=== PATIENT | female | born 1955 | race African-American/Black ===

== ENCOUNTER 2016-08-06 18:36 | Inpatient (IN) | payer OTHER ==
[~2016-08-06] VITALS: Ht 162.6 cm; Wt 92.0 kg
[2016-08-06] MEDS ORDERED: SOD CHLORIDE 0.9% 1,000 ML IV STA (18:37)
[2016-08-06 19:12] VITALS: TEMP 97.6
[2016-08-06 19:14] LABS: ADD SCAN DIFF NO
[2016-08-06 19:17] LABS: BASOPHILS % 0.7 % (0.0-2.0); EOSINOPHILS % 0.4 % (0.0-7.0); HEMATOCRIT 49.1 % (37.0-47.0); HEMOGLOBIN 16.4 g/dl (12.0-16.0); LYMPHOCYTES # 1.6 10^3/ul (0.8-2.9); LYMPHOCYTES % 29.8 % (15.0-51.0); MEAN CORPUSCULAR HEMOGLOBIN 31.1 pg (29.0-33.0); MEAN CORPUSCULAR HGB CONC 33.4 g/dl (32.0-37.0); MEAN PLATELET VOLUME 9.1 fl (7.4-10.4); MONOCYTE # 0.3 10^3/ul (0.3-0.9); MONOCYTES % 5.5 % (0.0-11.0); NEUTROPHIL # 3.4 10^3/ul (1.6-7.5); NEUTROPHILS % 63.4 % (39.0-77.0); PLATELET COUNT 283 10^3/UL (140-415); RED BLOOD COUNT 5.28 10^6/ul (4.20-5.40); RED CELL DISTRIBUTION WIDTH 13.2 % (11.5-14.5); WHITE BLOOD COUNT 5.4 10^3/ul (4.8-10.8)
--- NOTE | 2016-08-06 19:25 | RADRPT ---
PROCEDURE: XR Chest. CLINICAL INDICATION: Chest pain. TECHNIQUE: Portable AP semi erect view of the chest was obtained. COMPARISON: None. FINDINGS: The cardiomediastinal silhouette is within normal limits. The lungs are clear. There is no evidenc e for pleural effusion, pneumothorax or pulmonary vascular congestion. The osseous structures are i ntact with no evidence for acute abnormality. RPTAT:HJJR IMPRESSION: No evidence for acute intrathoracic pathology. Physician Cici Date Time Electronically viewed and signed by Efren Weldon Physician on 08/06/2016 19:25 JR/
[2016-08-06 19:27] LABS: CHLORIDE 103 mmol/L (97-110); POTASSIUM 3.3 mmol/L (3.5-5.1); SODIUM 142 mmol/L (135-144)
[2016-08-06 19:29] LABS: CREATININE 2.31 mg/dl (0.44-1.00)
[2016-08-06 19:30] LABS: ANION GAP 17 (8-16); BLOOD UREA NITROGEN 22 mg/dl (7-20); CARBON DIOXIDE 25 mmol/L (21-31); GLUCOSE 174 mg/dl (70-220)
[2016-08-06 19:35] LABS: INR 0.99; PROTIME 13.1 Sec (12.2-14.2)
[2016-08-06 19:41] LABS: TROPONIN-I < 0.012 ng/ml (0.00-0.12)
[2016-08-06] MEDS ORDERED: ASPIRIN 81 MG TAB PO ONE (21:30)
--- NOTE | 2016-08-06 21:38 | ERA ---
ER Documentation Chief Complaint Date/Time DATE: 08/06/16 TIME: 21:35 Chief Complaint weakness, chest pain, sob after giving plasma HPI 61-year-old female history of lupus who presents with weakness and chest pain and shortness of breath after giving plasma. Shortly after donating plasma 1 hour prior to arrival the patient started to feel lightheaded and dizzy. She started to have substernal chest pressure that was dull and achy. Nonradiating. Mild shortness of breath but no pleuritic pain. The patient was hypotensive upon arrival. ROS All systems reviewed and are negative except as per history of present illness. PMhx/Soc History of Surgery: Yes (boil excision and drainage) Anesthesia Reaction: No Hx Neurological Disorder: No Hx Respiratory Disorders: No Hx Cardiac Disorders: No Hx Psychiatric Problems: No Hx Miscellaneous Medical Probl: Yes (lupus) Hx Alcohol Use: Yes (2 drinks per month) Hx Substance Use: No Hx Tobacco Use: Yes Smoking Status: Light tobacco smoker FmHx Family History: No diabetes Physical Exam Vitals Vital Signs Date Time Temp Pulse Resp B/P Pulse Ox O2 Delivery O2 Flow Rate FiO2 08/06/16 19:59 81 14 116/72 90 08/06/16 19:17 84 102/70 08/06/16 19:14 90 81/63 08/06/16 19:12 97.6 94 18 70/50 98 Room Air 08/06/16 18:40 98.1 101 24 98 Physical Exam General: Anxious with hyperventilation Head: Normocephalic, atraumatic. Eyes: Pupils equally reactive, EOM intact ENT: Moist mucous membranes Neck: Supple, no lymphadenopathy Respiratory: Lungs clear bilaterally, no distress Cardiovascular: Slight tachycardia, no murmurs, rubs, or gallops Abdominal: Soft, non-tender, non-distended, no peritoneal signs : Deferred MSK: No edema, no unilateral swelling, 5/5 strength Neurologic: Alert and oriented, moving all extremities, normal speech, no focal weakness, no cerebellar signs Skin: No rash Psych: Normal mood Result Diagram: 08/06/16190908/06/161909 Results 24 hrs Laboratory Tests Test 08/06/16 19:10 Activated Partial Thromboplast Time 25.0Sec Anion Gap 17 Basophils # 0.010^3/ul Basophils % 0.7% Blood Urea Nitrogen 22mg/dl Calcium Level 9.0mg/dl Carbon Dioxide Level 25mmol/L Chloride Level 103mmol/L Creatinine 2.31mg/dl Eosinophils # 0.010^3/ul Eosinophils % 0.4% Glucose Level 174mg/dl Hematocrit 49.1% Hemoglobin 16.4g/dl INR International Normalized Ratio 0.99 Lymphocytes # 1.610^3/ul Lymphocytes % 29.8% Mean Corpuscular Hemoglobin 31.1pg Mean Corpuscular Hemoglobin Concent 33.4g/dl Mean Corpuscular Volume 93.0fl Mean Platelet Volume 9.1fl Monocytes # 0.310^3/ul Monocytes % 5.5% Neutrophils # 3.410^3/ul Neutrophils % 63.4% Nucleated Red Blood Cells # 0.010^3/ul Nucleated Red Blood Cells % 0.0/100WBC Platelet Count 51834^3/UL Potassium Level 3.3mmol/L Prothrombin Time 13.1Sec Prothrombin Time Ratio 1.0 Red Blood Count 5.2810^6/ul Red Cell Distribution Width 13.2% Sodium Level 142mmol/L Troponin I < 0.012ng/ml White Blood Count 5.410^3/ul Current Medications Medications (Trade) Dose Ordered Sig/Juanpablo Route PRN Reason Start Time Stop Time Status Last Admin Dose Admin Sodium Chloride (NS) 1,000 ml @ 1,000 mls/hr Q1H STAT IV 08/06/16 18:37 08/06/16 19:36 DC 08/06/16 19:08 Aspirin (Aspirin) 324 mg ONCE ONCE PO 08/06/16 21:30 08/06/16 21:31 DC 08/06/16 21:34 Procedures/MDM EKG, MONITORS, & DIAGNOSTIC IMAGING: EKG: I reviewed and interpreted a 12-lead EKG. Rhythm: Normal sinus rhythm Ectopy: None Intervals: No abnormalities ST segments: No elevations or depressions T waves: No contiguous inversions Chest x-ray: I reviewed and interpreted a 1 view of the chest Mediastinum: No enlargement Cardiac silhouette: No cardiomegaly Airspace: Clear lung [place] bilaterally without evidence of pneumothorax Bones: No evidence of fracture LAB INTERPRETATION: Negative troponin, elevated creatinine MEDICAL DECISION MAKING: The patient presents with chest pain and hypotension after donating plasma. This is likely secondary to relative hypovolemia and fluid shifts. However with the patient's chest pain, history of lupus I cannot rule out demand ischemia. Patient will benefit from EKG, troponin, fluid resuscitation. No signs of dissection or pulmonary embolism. ER COURSE: The patient's blood pressure rapidly responded to fluid resuscitation. Her symptoms improved. Aspirin provided. The patient's creatinine is elevated. She has not been told that she has elevated creatinine in the past. I do not have a baseline. I discussed inpatient versus outpatient management. Patient prefers inpatient hospitalization she has never had stress testing or provocative testing for her heart. I believe this to be reasonable given her age and risk factors and relative hypotension. Observation would be reasonable to rule out ACS. I kept the patient and/or family informed of laboratory and diagnostic imaging results throughout the emergency room course. DISPOSITION PLAN: Telemetry admission for chest pain CONSULTATION: Accepting care team and consultations: I discussed the current laboratory data, diagnostic imaging and emergency care provided. Admitting team: Dr. Majano Admitting team indication: Insurance directed Departure Diagnosis: Primary Impression: Chest pain Qualified Code: R07.9 - Chest pain, unspecified type Additional Impression: Acute renal insufficiency Condition: Stable YVETTE MESA MD Aug 06, 2016 21:38
[2016-08-06] MEDS ORDERED: ALBUTEROL/IPRATROPIUM (NEB) 3 ML AMP HHN PRN (22:00)
[2016-08-06] MEDS ORDERED: ONDANSETRON 4 MG INJ IV PRN ×2 (22:00)
[2016-08-06] MEDS ORDERED: LORAZEPAM 2 MG INJ IV PRN (22:00)
[2016-08-06] MEDS ORDERED: hydrALAzine 20 MG INJ IV PRN (22:00)
[2016-08-06] MEDS ORDERED: ACETAMINOPHEN 325 MG TAB PO PRN ×2 (22:00)
[2016-08-06] MEDS ORDERED: NACL 0.9% 3 ML SYG IV SCH (22:00)
[2016-08-06] MEDS ORDERED: NITROGLYCERIN (SL) 0.4 MG TAB SL PRN (22:00)
[2016-08-06] MEDS ORDERED: morphine 2 MG INJ IV PRN (22:00)
[2016-08-06] MEDS ORDERED: DOCUSATE SODIUM 100 MG CAP PO PRN (22:00)
[2016-08-06] MEDS ORDERED: NA PHOSPHATE/BIPHOS 133 ML ENEMA PR PRN (22:00)
[2016-08-06 22:32] LABS: CREATINE KINASE 35 IU/L (23-200)
[2016-08-06 22:47] LABS: CK-MB < 0.22 ng/ml (0.0-2.4)
[2016-08-06 22:51] LABS: TROPONIN-I < 0.012 ng/ml (0.00-0.12)
[2016-08-06 23:25] VITALS: Ht 162.6 cm; Wt 92.0 kg
[2016-08-06 23:31] VITALS: BP 99/65; PULSE 85; RESP 20
[2016-08-07] VITALS (10 sets, daily range): BP systolic 99–128; BP diastolic 63–72; PULSE 71–88; RESP 18–20
[2016-08-07 01:48] LABS: CREATINE KINASE 32 IU/L (23-200)
[2016-08-07 01:59] LABS: TROPONIN-I 0.014 ng/ml (0.00-0.12)
[2016-08-07 02:00] LABS: CK-MB < 0.22 ng/ml (0.0-2.4)
[2016-08-07 03:50] LABS: CREATINE KINASE 29 IU/L (23-200)
[2016-08-07 04:44] LABS: CK-MB < 0.22 ng/ml (0.0-2.4); TROPONIN-I < 0.012 ng/ml (0.00-0.12)
--- NOTE | 2016-08-07 04:53 | HP ---
DATE OF ADMISSION: 08/06/2016 The patient was seen and examined by me on 08/06/2016 at 10:00 p.m. This is a 61-year-old female. CHIEF COMPLAINT: Hypotension and chest pain. HISTORY OF PRESENT ILLNESS: A 61-year-old female with past medical history of lupus who presents wi th some weakness and chest pain symptoms and low blood pressure. The patient apparently gave plasma earlier today and started having the symptoms shortly afterwards. She has never had these symptoms before, although she has given plasma before. Again, the patient had these symptoms of chest pain and shortness of breath. She also had a little bit of lightheadedness and dizziness, but no loss of consciousness. She also had some substernal chest pressure as well that was dull and achy. She ne abena had a stroke or heart attack before. No upper or lower GI bleeding, no fevers or chills, no new rrhea, no constipation. When the patient arrived to the ER, she had low blood pressure systolic was in the low 70s as well. PAST MEDICAL HISTORY: As stated above. ALLERGIES: Unknown. MEDICATIONS AT HOME: None. FAMILY HISTORY: Mom had renal issues, diabetes. Mom also had stroke and she had "heart" problems. Father had renal disease and was on dialysis before he . One sister has diabetes. PAST SURGICAL HISTORY: She has had boil excision and drainage surgery in the past. SOCIAL HISTORY: She drinks about 2 drinks per month. She does smoke a few cigarettes per week, but no IV drug abuse today. PHYSICAL EXAMINATION: VITAL SIGNS: T-max 98.1, pulse 81 to 101, respirations 14 to 24, blood pressure 70 to 116 systolic over 50 to 72 diastolic, saturating at 98% on room air. GENERAL: The patient is sitting up in bed, answering questions, alert, pleasant, in no acute distre ss. HEENT: Pupils equal, round and reactive to light. Extraocular muscles intact. NECK: Supple, no thyromegaly. LUNGS: Clear to auscultation bilaterally. CARDIOVASCULAR: S1, S2 heard. No rubs or gallops. ABDOMEN: Soft, nontender, nondistended. Normal bowel sounds. No rebound or guarding. MUSCULOSKELETAL: No lower extremity edema bilaterally. NEUROLOGIC: No focal deficits. LABORATORIES: CBC is normal. The sodium is 142, potassium 3.3, chloride 103, CO2 of 25, BUN 22, cr eatinine 2.31, glucose 174. Troponin is negative x1. Coags are normal. Chest x-ray: No evidence of any acute cardiopulmonary disease. EKG done in the ER showed normal sinus rhythm, no ST changes or T-wave inversions were noted. ASSESSMENT AND PLAN: A 61-year-old female coming in with chest pressure symptoms, weakness, dizzine ss and hypotension after donating plasma earlier today. 1. Chest pain. Admit the patient to telemetry floor, rule out for acute coronary syndrome. We anais l trend her troponins check them q.6 hours x3. Put her on aspirin, morphine, oxygen, and nitrates, get an echocardiogram as well. Check TSH, A1c and lipid panel as well. 2. Dizziness and hypotension. Blood pressure has improved. Continue IV fluids and monitor for now . 3. History of lupus. The patient states that she was evaluated by a field mechanic/site lead in the last year , but it was determined not to take any medicines for now, so will just monitor for now. The patien t is not on any medicines presently for this, does not complain of any flare ups at this time. 4. Gastrointestinal prophylaxis, proton pump inhibitor. 5. Deep venous thrombosis prophylaxis, heparin subQ. Dictated By: OZ COLLINS Conf#: [id number] DID#: [id number]
[2016-08-07] MEDS: SOD CHLORIDE 0.45% 1,000 ML IV SCH ×2 (05:00→11:40)
[2016-08-07] MEDS: PANTOPRAZOLE (EC) 40 MG TAB PO SCH (05:47)
[2016-08-07 07:39] LABS: CREATINE KINASE 31 IU/L (23-200)
[2016-08-07 07:43] LABS: ADD SCAN DIFF NO
[2016-08-07 07:47] LABS: TROPONIN-I 0.016 ng/ml (0.00-0.12)
[2016-08-07 07:49] LABS: CK-MB < 0.22 ng/ml (0.0-2.4)
[2016-08-07 08:17] LABS: BASOPHIL # 0.1 10^3/ul (0.0-0.1); EOSINOPHILS # 0.1 10^3/ul (0.0-0.5); HEMATOCRIT 42.4 % (37.0-47.0); HEMOGLOBIN 14.1 g/dl (12.0-16.0); LYMPHOCYTES % 37.5 % (15.0-51.0); MEAN CORPUSCULAR HEMOGLOBIN 31.3 pg (29.0-33.0); MEAN CORPUSCULAR HGB CONC 33.3 g/dl (32.0-37.0); MEAN CORPUSCULAR VOLUME 94.2 fl (82.0-101.0); MEAN PLATELET VOLUME 9.6 fl (7.4-10.4); MONOCYTE # 0.7 10^3/ul (0.3-0.9); MONOCYTES % 12.4 % (0.0-11.0); NEUTROPHIL # 2.5 10^3/ul (1.6-7.5); NEUTROPHILS % 47.9 % (39.0-77.0); PLATELET COUNT 257 10^3/UL (140-415); RED CELL DISTRIBUTION WIDTH 13.4 % (11.5-14.5); WHITE BLOOD COUNT 5.3 10^3/ul (4.8-10.8)
[2016-08-07 08:27] LABS: CHOL/HDL RATIO 3.7 RATIO; POTASSIUM 3.8 mmol/L (3.5-5.1)
[2016-08-07 08:30] LABS: CREATININE 1.49 mg/dl (0.44-1.00)
[2016-08-07 08:31] LABS: CALCIUM 8.4 mg/dl (8.4-10.2); MAGNESIUM 2.1 mg/dl (1.7-2.5); PHOSPHORUS 4.4 mg/dl (2.5-4.9)
[2016-08-07] MEDS: ASPIRIN (EC) 325 MG TAB PO SCH (08:36)
[2016-08-07] MEDS: HEPARIN 5,000 UNIT/0.5 ML SYG SC SCH ×2 (08:46→20:30)
[2016-08-07 10:53] LABS: THYROID STIMULATING HORMONE 0.675 MIU/L (0.465-4.680)
--- NOTE | 2016-08-07 11:39 | PN ---
Date/Time of Note Date/Time of Note DATE: 08/07/16 TIME: 11:37 Assessment/Plan VTE Prophylaxis VTE Prophylaxis Intervention: heparin Lines/Catheters IV Catheter Type (from Nrs): Peripheral IV Urinary Cath still in place: No Assessment/Plan Assessment/Plan 1. Chest pain. serial troponis and EKG negative, low risk 2. Dizziness and hypotension. Blood pressure has improved. Continue IV fluids and monitor for now. 3. History of lupus. The patient states that she was evaluated by a coal and ash supervisor in the last year, but it was determined not to take any medicines for now, so will just monitor for now. The patient is not on any medicines presently for this, does not complain of any flare ups at this time. 4. Acute kidney injury due to prerenal azotemia on IVF 4. Gastrointestinal prophylaxis, proton pump inhibitor. 5. Deep venous thrombosis prophylaxis, heparin subQ. continue IVF, pain control Downgrade to med/surge floor Subjective 24 Hr Interval Summary Free Text/Dictation pt feeling oliver,r no chest pain, no nausea Exam/Review of Systems Vital Signs Vitals Vital Signs Date Time Temp Pulse Resp B/P Pulse Ox O2 Delivery O2 Flow Rate FiO2 08/07/16 11:31 98.2 72 18 118/65 97 08/06/16 23:31 Room Air Intake and Output 08/06/16 08/06/16 08/07/16 15:00 23:00 07:00 Intake Total 235 ml Balance 235 ml Exam GENERAL: The patient is sitting up in bed, answering questions, alert, pleasant , in no acute distress. HEENT: Pupils equal, round and reactive to light. Extraocular muscles intact. NECK: Supple, no thyromegaly. LUNGS: Clear to auscultation bilaterally. CARDIOVASCULAR: S1, S2 heard. No rubs or gallops. ABDOMEN: Soft, nontender, nondistended. Normal bowel sounds. No rebound or guarding. MUSCULOSKELETAL: No lower extremity edema bilaterally. NEUROLOGIC: No focal deficits. Results Result Diagram: 08/07/1660408/07/16604 Results 24 hrs Laboratory Tests Test 08/06/16 19:10 08/06/16 21:50 08/07/16 00:45 08/07/16 03:13 Activated Partial Thromboplast Time 25.0 Anion Gap 17 H Basophils # 0.0 Basophils % 0.7 Blood Urea Nitrogen 22 H Calcium Level 9.0 Carbon Dioxide Level 25 Chloride Level 103 Creatinine 2.31 H Eosinophils # 0.0 Eosinophils % 0.4 Glucose Level 174 Hematocrit 49.1 H Hemoglobin 16.4 H INR International Normalized Ratio 0.99 Lymphocytes # 1.6 Lymphocytes % 29.8 Mean Corpuscular Hemoglobin 31.1 Mean Corpuscular Hemoglobin Concent 33.4 Mean Corpuscular Volume 93.0 Mean Platelet Volume 9.1 Monocytes # 0.3 Monocytes % 5.5 Neutrophils # 3.4 Neutrophils % 63.4 Nucleated Red Blood Cells # 0.0 Nucleated Red Blood Cells % 0.0 Platelet Count 283 Potassium Level 3.3 L Prothrombin Time 13.1 Prothrombin Time Ratio 1.0 Red Blood Count 5.28 Red Cell Distribution Width 13.2 Sodium Level 142 Troponin I < 0.012 < 0.012 0.014 < 0.012 White Blood Count 5.4 Creatine Kinase 35 32 29 Creatine Kinase Index 0.6 0.7 0.8 Creatinine Kinase MB (Mass) < 0.22 < 0.22 < 0.22 Free Thyroxine 1.01 Test 08/07/16 06:05 Anion Gap 18 H Basophils # 0.1 Basophils % 1.0 Blood Urea Nitrogen 23 H Calcium Level 8.4 Carbon Dioxide Level 23 Chloride Level 107 Cholesterol Level 155 Cholesterol/HDL Ratio 3.7 Creatine Kinase 31 Creatine Kinase Index 0.7 Creatinine 1.49 H Creatinine Kinase MB (Mass) < 0.22 Eosinophils # 0.1 Eosinophils % 1.0 Glucose Level 129 # HDL Cholesterol 41 Hematocrit 42.4 Hemoglobin 14.1 Hemoglobin A1c 5.3 LDL Cholesterol, Calculated 97 Lymphocytes # 2.0 Lymphocytes % 37.5 Magnesium Level 2.1 Mean Corpuscular Hemoglobin 31.3 Mean Corpuscular Hemoglobin Concent 33.3 Mean Corpuscular Volume 94.2 Mean Platelet Volume 9.6 Monocytes # 0.7 Monocytes % 12.4 H Neutrophils # 2.5 Neutrophils % 47.9 Nucleated Red Blood Cells # 0.0 Nucleated Red Blood Cells % 0.0 Phosphorus Level 4.4 Platelet Count 257 Potassium Level 3.8 Red Blood Count 4.50 Red Cell Distribution Width 13.4 Sodium Level 144 Thyroid Stimulating Hormone (TSH) 0.675 Triglycerides Level 86 Troponin I 0.016 White Blood Count 5.3 Medications Medications Current Medications Ondansetron HCl (Zofran Inj) 4 mg Q6H PRN IV NAUSEA AND/OR VOMITING; Start at 22:00 Acetaminophen (Tylenol Tab) 650 mg Q6H PRN PO PAIN LEVEL 1-3 OR FEVER; Start at 22:00 Acetaminophen/ Hydrocodone Bitart ([place] (5/325)) 1 tab Q6H PRN PO MODERATE PAIN LEVEL 4-6; Start 08/06/16 at 22:00 Morphine Sulfate (morphine) 2 mg Q4H PRN IV SEVERE PAIN LEVEL 7-10; Start 08/06 at 22:00 Docusate Sodium (Colace) 100 mg Q12H PRN PO CONSTIPATION; Start 08/06/16 at 22: 00 Magnesium Hydroxide (Milk Of Mag) 30 ml DAILY PRN PO CONSTIPATION; Start at 22:00 Sodium Biphosphate/ Sodium Phosphate (Fleet Enema) [address] CONSTIPATION; Start 08/06/16 at 22:00 Heparin Sodium (Porcine) 5000 unit 5,000 unit Q12 SC Last administered on 08:46; Admin Dose 5,000 UNIT; Start 08/07/16 at 09:00 Sodium Chloride (1/2 NS) 1,000 ml @ 75 mls/hr [id number] IV Last administered on 08/07/16 05:00; Admin Dose 75 MLS/HR; Start 08/06/16 at 21:39 Lorazepam (Ativan) 0.5 mg Q6H PRN IV ANXIETY; Start 08/06/16 at 22:00 Hydralazine HCl (Apresoline) 10 mg Q6H PRN IV ELEVATED BLOOD PRESSURE; Start at 22:00 Nitroglycerin (Nitroglycerin (Sl Tab) 0.4 Mg) 1 tab Q5M PRN SL ANGINA; Start at 22:00 Aspirin (Ecotrin) 325 mg DAILY PO Last administered on 08/07/16 08:36; Admin Dose 325 MG; Start 08/07/16 at 09:00 Pantoprazole (Protonix Tab) 40 mg DAILY@06 PO Last administered on 08/07/16 05 :47; Admin Dose 40 MG; Start 08/07/16 at 06:00 HUGH JOSEPH MD Aug 07, 2016 11:39
--- NOTE | 2016-08-07 19:16 | RADRPT ---
Echocardiogram Report Patient Name: GERALD MARCOS Gender: Female Date: 1955 Study Date: 07-Aug-2016 Cake Wrapper: Mesha Mcduffie [facility] Location: [id number] Ref. Physician: OZ GRUBBS Quality: Good Procedures: Transthoracic echocardiogram with complete 2D, M-Mode, and doppler examination. Indications: Chest Pain. 2D/M Mode Doppler Measurement Value Normal Ranges Measurement Value Normal Ranges LVIDd 2D 4.8 3.5 - 5.6 cm AV Peak Brian 1.5 m/sec LVIDs 2D 2.4 2.1 - 4.1 cm AV Peak PG 9.0 mmHg FS 2D 50.1 % LVOT Peak Brian 1.2 m/sec LVPWd 2D 1.0 0.6 - 1.1 cm LVOT Peak PG 6.0 mmHg IVSd 2D 0.9 0.6 - 1.1 cm MV E Peak Brian 0.5 m/sec IVS/LVPW 2D 1.0 MV A Peak Brian 0.6 m/sec AoR Diam 2D 2.6 2.0 - 3.7 cm MV E/A 0.9 LA/Ao 2D 1 0 - 1 MV Decel Time 190 msec EDV 2D 114.0 cm3 MV E/A 0.9 ESV 2D 14.2 cm3 TR Peak Brian 2.6 m/sec LA Dimen 2D 2.4 2.3 - 4.0 cm TR Peak PG 27.0 mmHg RVSP 30.0 mmHg Findings Left Ventricle: Normal left ventricular systolic function. Normal left ventricular cavity size. Normal left ventricular wall thickness. Ejection fraction is visually estimated at 55 %. Tissue Doppler/Mitral Doppler indices are consistent with impaired relaxation (Stage I diastolic dysfunction). Right Ventricle: Normal right ventricular size. Normal right ventricular systolic function. Left Atrium: The left atrium is normal in size. Right Atrium: The right atrium is normal in size. Mitral Valve: Normal appearance and function of the mitral valve with trace physiologic regurgitation. Aortic Valve: Normal appearance of the aortic valve. No significant aortic stenosis or insufficiency. Tricuspid Valve: Normal appearance of the tricuspid valve. Estimated peak PA systolic pressure 30 mmHg. There is trace tricuspid regurgitation. Pulmonic Valve: Normal pulmonic valve appearance. Pericardium: Normal pericardium with no significant pericardial effusion. Aorta: Normal aortic root. IVC: Normal size and normal respiratory collapse consistent with normal right atrial pressure. Conclusions 1.Normal left ventricular systolic function. Normal left ventricular cavity size. Normal left ventricular wall thickness. Ejection fraction is visually estimated at 55 %. Tissue Doppler/Mitral Doppler indices are consistent with impaired relaxation (Stage I diastolic dysfunction). 2.Normal appearance and function of the mitral valve with trace physiologic regurgitation. 3.Normal appearance of the tricuspid valve. Estimated peak PA systolic pressure 30 mmHg. There is trace tricuspid regurgitation. Electronically Signed By: Titi Rios 07-Aug-2016 19:15:21 -0700 Patient Name: GERALD MARCOS Study Date: 07-Aug-2016 [id number]
[2016-08-08 00:11] VITALS: BP 130/80; RESP 20
[2016-08-08 00:39] VITALS: BP 122/70; RESP 20
[2016-08-08] MEDS: SOD CHLORIDE 0.45% 1,000 ML IV SCH ×2 (01:13→14:32)
[2016-08-08] MEDS: HYDROCODONE/APAP (5/325) TAB PO PRN ×4 (01:13→23:24)
[2016-08-08 01:30] VITALS: BP 133/81; PULSE 69; RESP 18
[2016-08-08] MEDS: PANTOPRAZOLE (EC) 40 MG TAB PO SCH (06:10)
[2016-08-08 07:15] LABS: ADD SCAN DIFF NO
[2016-08-08 07:19] VITALS: BP 119/56; RESP 14
[2016-08-08 07:35] LABS: ABNORMAL IP MESSAGE 1; BASOPHIL # 0.1 10^3/ul (0.0-0.1); BASOPHILS % 1.5 % (0.0-2.0); EOSINOPHILS # 0.1 10^3/ul (0.0-0.5); HEMATOCRIT 39.4 % (37.0-47.0); HEMOGLOBIN 12.9 g/dl (12.0-16.0); LYMPHOCYTES # 1.7 10^3/ul (0.8-2.9); LYMPHOCYTES % 51.5 % (15.0-51.0); MEAN CORPUSCULAR HEMOGLOBIN 31.2 pg (29.0-33.0); MEAN CORPUSCULAR HGB CONC 32.7 g/dl (32.0-37.0); MEAN CORPUSCULAR VOLUME 95.2 fl (82.0-101.0); MEAN PLATELET VOLUME 9.1 fl (7.4-10.4); MONOCYTE # 0.5 10^3/ul (0.3-0.9); MONOCYTES % 15.2 % (0.0-11.0); NEUTROPHILS % 28.8 % (39.0-77.0); PLATELET COUNT 231 10^3/UL (140-415); RED BLOOD COUNT 4.14 10^6/ul (4.20-5.40); RED CELL DISTRIBUTION WIDTH 13.2 % (11.5-14.5); WHITE BLOOD COUNT 3.3 10^3/ul (4.8-10.8)
[2016-08-08 07:37] LABS: POTASSIUM 4.1 mmol/L (3.5-5.1)
[2016-08-08 07:39] LABS: CREATININE 1.01 mg/dl (0.44-1.00)
[2016-08-08 07:40] LABS: CALCIUM 8.7 mg/dl (8.4-10.2)
[2016-08-08] MEDS: ASPIRIN (EC) 325 MG TAB PO SCH (09:03)
[2016-08-08] MEDS: HEPARIN 5,000 UNIT/0.5 ML SYG SC SCH ×2 (09:13→20:55)
[2016-08-08 09:52] LABS: ADD UMIC YES; URINE BILIRUBIN (Dip) NEGATIVE (NEGATIVE); URINE BLOOD (Dip) 1+ (NEGATIVE); URINE COLOR LT. YELLOW (YELLOW); URINE GLUCOSE (Dip) NEGATIVE (NEGATIVE); URINE KETONES (Dip) NEGATIVE (NEGATIVE); URINE LEUKOCYTE ESTERASE (Dip) TRACE (NEGATIVE); URINE NITRITE (Dip) NEGATIVE (NEGATIVE); URINE TOTAL PROTEIN (Dip) NEGATIVE (NEGATIVE); URINE UROBILINOGEN (Dip) 0.2 E.U./dL (0.1-1.0)
[2016-08-08 10:25] LABS: BACTERIA,URINE RARE; URINE RBCS 0-2 /HPF (0)
--- NOTE | 2016-08-08 16:17 | PN ---
DATE: 08/08/2016 TIME OF EVALUATION: 12:00 p.m. SUBJECTIVE DATA: Complains of a severe headache. The patient also complains of pain in the back of the neck. Blood pressure is stable. OBJECTIVE DATA: VITAL SIGNS: Temperature 98.6, pulse of 68, respiratory rate 14, blood pressure 119/56, oxygen saturation 96% on room air. GENERAL: This is an obese -Algerian female, lying in bed in no apparent distress. HEENT: Head normocephalic and atraumatic. Eyes, anicteric sclerae. Conjunctivae are clear. ENT: Nasal septum is midline. Oral mucosa is dry. NECK: Short and obese. Unable to visualize any neck veins. CARDIAC: Regular rate and rhythm. No murmur is heard. ABDOMEN: Soft, nontender and nondistended. Bowel sounds are positive in all 4 quadrants. GENITOURINARY: Deferred. EXTREMITIES: No cyanosis, no clubbing, no edema. Peripheral pulses palpable. NEUROLOGIC: The patient is awake, alert and oriented. Cranial nerves are grossly intact. LABORATORY AND DIAGNOSTIC DATA: WBC 3.3, hemoglobin 12.9, hematocrit 39.4, platelet count 231. Sodium 139, potassium 4.1, chloride 106, carbon dioxide 27 , anion gap 10, BUN 17, creatinine 1.01, glucose 87, calcium 8.6. ASSESSMENT AND PLAN: 1. Chest pain. Acute coronary syndrome ruled out. Serial troponins negative. 2D echocardiogram showed a preserved left ventricular ejection fraction. 2. Symptomatic hypotension. Currently resolved. The patient's blood pressure is within normal limits. Etiology remains unclear. 3. Acute kidney injury secondary to prerenal azotemia. Improving with IV fluids. 4. History of lupus. No active issues at this time. 5. Obesity. Weight reduction advised. 6. Cephalgia. Etiology unclear. The patient denies any history of migraine headaches. Will obtain a brain CT scan to further evaluate this, especially since the patient has a family history of stroke. 7. Fluid, electrolytes and nutrition. Continue low cholesterol diet. 8. Deep venous thrombosis prophylaxis. Subcutaneous heparin. 9. Gastrointestinal prophylaxis. Proton pump inhibitors. PLAN: Continue inpatient monitoring. Await brain CT. The case was discussed with Dr. Mazariegos. JACKY MAZARIEGOS MD, AM/MARIAM Conf#: [id number] [facility]#: [id number] MTDD
--- NOTE | 2016-08-08 18:31 | RADRPT ---
PROCEDURE: CT Brain without contrast. CLINICAL INDICATION: Headache. TECHNIQUE: A CT of the brain without contrast was performed utilizing axial sections from the skul l base through the vertex. The patient was scanned without intravenous contrast enhancement. Sag[place] l and coronal reformatted images were obtained using the data from the axial images. Total exam DLP is 720.23 mGy-cm. CTDIvol is 45.01 mGy. One or more of the following dose reduction techniques we re used: Automated exposure control, adjustment of the mA and/or kV according to patient size, use o f iterative reconstruction technique. COMPARISON: None available FINDINGS: There is normal acuna-white matter differentiation. The ventricles and cisterns are normal. There is no intracranial hemorrhage or space-occupying lesion. There is no skull fracture or lytic lesion. IMPRESSION: 1. Normal noncontrast CT scan of the brain. RPTAT: QQ .Norbert Regalado MD, MD Date Time Electronically viewed and signed by .Norbert Regalado MD, MD on 08/08/2016 18:31 .R/
[2016-08-08 19:56] VITALS: BP 138/79; RESP 18
[2016-08-09 05:27] LABS: ADD SCAN DIFF NO
[2016-08-09 05:43] LABS: BASOPHILS % 1.1 % (0.0-2.0); EOSINOPHILS # 0.1 10^3/ul (0.0-0.5); EOSINOPHILS % 3.7 % (0.0-7.0); HEMATOCRIT 41.5 % (37.0-47.0); HEMOGLOBIN 13.4 g/dl (12.0-16.0); LYMPHOCYTES # 1.9 10^3/ul (0.8-2.9); LYMPHOCYTES % 49.2 % (15.0-51.0); MEAN CORPUSCULAR HEMOGLOBIN 30.7 pg (29.0-33.0); MEAN CORPUSCULAR HGB CONC 32.3 g/dl (32.0-37.0); MEAN PLATELET VOLUME 9.2 fl (7.4-10.4); MONOCYTE # 0.5 10^3/ul (0.3-0.9); MONOCYTES % 11.8 % (0.0-11.0); NEUTROPHIL # 1.3 10^3/ul (1.6-7.5); NEUTROPHILS % 33.9 % (39.0-77.0); PLATELET COUNT 253 10^3/UL (140-415); RED BLOOD COUNT 4.37 10^6/ul (4.20-5.40); RED CELL DISTRIBUTION WIDTH 12.8 % (11.5-14.5); WHITE BLOOD COUNT 3.8 10^3/ul (4.8-10.8)
[2016-08-09] MEDS: HYDROCODONE/APAP (5/325) TAB PO PRN ×3 (05:59→21:24)
[2016-08-09] MEDS: SOD CHLORIDE 0.45% 1,000 ML IV SCH ×3 (05:59→21:23)
[2016-08-09] MEDS: PANTOPRAZOLE (EC) 40 MG TAB PO SCH (05:59)
[2016-08-09 07:20] VITALS: BP 135/75; RESP 18
[2016-08-09] MEDS: ASPIRIN (EC) 325 MG TAB PO SCH (08:05)
[2016-08-09] MEDS: HEPARIN 5,000 UNIT/0.5 ML SYG SC SCH ×2 (08:16→21:21)
[2016-08-09 08:29] LABS: POTASSIUM 4.3 mmol/L (3.5-5.1)
[2016-08-09 08:32] LABS: CREATININE 1.14 mg/dl (0.44-1.00)
--- NOTE | 2016-08-09 11:16 | PN ---
Date/Time of Note Date/Time of Note DATE: 08/09/16 TIME: 11:15 Assessment/Plan VTE Prophylaxis VTE Prophylaxis Intervention: SCD's Lines/Catheters IV Catheter Type (from Nrs): Peripheral IV Urinary Cath still in place: No Assessment/Plan Assessment/Plan 1. Chest pain. serial troponis and EKG negative, low risk 2. Dizziness and hypotension. Blood pressure has improved. Continue IV fluids and monitor for now. 3. History of lupus. The patient states that she was evaluated by a wood turning lathe operator in the last year, but it was determined not to take any medicines for now, so will just monitor for now. The patient is not on any medicines presently for this, does not complain of any flare ups at this time. 4. Acute kidney injury due to prerenal azotemia on IVF 4. Gastrointestinal prophylaxis, proton pump inhibitor. 5. Deep venous thrombosis prophylaxis, heparin subQ. continue IVF, pain control Exam/Review of Systems Vital Signs Vitals Vital Signs Date Time Temp Pulse Resp B/P Pulse Ox O2 Delivery O2 Flow Rate FiO2 08/09/16 07:20 97.7 18 135/75 99 08/08/16 19:56 67 08/08/16 01:30 Room Air 08/07/16 21:12 21 Intake and Output 08/08/16 08/08/16 08/09/16 15:00 23:00 07:00 Intake Total 1000 ml 3817 ml 2350 ml Output Total 3500 ml 2400 ml Balance 1000 ml 317 ml -50 ml Exam GENERAL: The patient is sitting up in bed, answering questions, alert, pleasant , in no acute distress. HEENT: Pupils equal, round and reactive to light. Extraocular muscles intact. NECK: Supple, no thyromegaly. LUNGS: Clear to auscultation bilaterally. CARDIOVASCULAR: S1, S2 heard. No rubs or gallops. ABDOMEN: Soft, nontender, nondistended. Normal bowel sounds. No rebound or guarding. MUSCULOSKELETAL: No lower extremity edema bilaterally. NEUROLOGIC: No focal deficits. Results Result Diagram: 08/09/16 0450 08/09/16 0450 Results 24 hrs Laboratory Tests Test 08/09/16 04:50 Anion Gap 14 Basophils # 0.0 Basophils % 1.1 Blood Urea Nitrogen 18 Calcium Level 9.0 Carbon Dioxide Level 27 Chloride Level 103 Creatinine 1.14 H Eosinophils # 0.1 Eosinophils % 3.7 Glucose Level 78 Hematocrit 41.5 Hemoglobin 13.4 Lymphocytes # 1.9 Lymphocytes % 49.2 Magnesium Level 1.9 Mean Corpuscular Hemoglobin 30.7 Mean Corpuscular Hemoglobin Concent 32.3 Mean Corpuscular Volume 95.0 Mean Platelet Volume 9.2 Monocytes # 0.5 Monocytes % 11.8 H Neutrophils # 1.3 L Neutrophils % 33.9 L Nucleated Red Blood Cells # 0.0 Nucleated Red Blood Cells % 0.0 Platelet Count 253 Potassium Level 4.3 Red Blood Count 4.37 Red Cell Distribution Width 12.8 Sodium Level 140 White Blood Count 3.8 L Medications Medications Current Medications Ondansetron HCl (Zofran Inj) 4 mg Q6H PRN IV NAUSEA AND/OR VOMITING; Start at 22:00 Acetaminophen (Tylenol Tab) 650 mg Q6H PRN PO PAIN LEVEL 1-3 OR FEVER; Start at 22:00 Acetaminophen/ Hydrocodone Bitart ([place] (5/325)) 1 tab Q6H PRN PO MODERATE PAIN LEVEL 4-6 Last administered on 08/09/16 05:59; Admin Dose 1 TAB; Start at 22:00 Morphine Sulfate (morphine) 2 mg Q4H PRN IV SEVERE PAIN LEVEL 7-10; Start 08/06 at 22:00 Docusate Sodium (Colace) 100 mg Q12H PRN PO CONSTIPATION; Start 08/06/16 at 22: 00 Magnesium Hydroxide (Milk Of Mag) 30 ml DAILY PRN PO CONSTIPATION; Start at 22:00 Sodium Biphosphate/ Sodium Phosphate (Fleet Enema) 133 ml DAILY PRN [place] CONSTIPATION; Start 08/06/16 at 22:00 Heparin Sodium (Porcine) 5000 unit 5,000 unit Q12 SC Last administered on 08:16; Admin Dose 5,000 UNIT; Start 08/07/16 at 09:00 Sodium Chloride (1/2 NS) 1,000 ml @ 75 mls/hr [id number] IV Last administered on 08/09/16 05:59; Admin Dose 75 MLS/HR; Start 08/06/16 at 21:39 Lorazepam (Ativan) 0.5 mg Q6H PRN IV ANXIETY; Start 08/06/16 at 22:00 Hydralazine HCl (Apresoline) 10 mg Q6H PRN IV ELEVATED BLOOD PRESSURE; Start at 22:00 Nitroglycerin (Nitroglycerin (Sl Tab) 0.4 Mg) 1 tab Q5M PRN SL ANGINA; Start at 22:00 Aspirin (Ecotrin) 325 mg DAILY PO Last administered on 08/09/16 08:05; Admin Dose 325 MG; Start 08/07/16 at 09:00 Pantoprazole (Protonix Tab) 40 mg DAILY@06 PO Last administered on 08/09/16 05 :59; Admin Dose 40 MG; Start 08/07/16 at 06:00 HUGH JOSEPH MD Aug 09, 2016 11:16
--- NOTE | 2016-08-09 11:41 | PDOCDIS ---
Discharge Instructions CONDITION Patient Condition: Good HOME CARE INSTRUCTIONS: Special Diet: low fat,chol ACTIVITY: Activity Restrictions: Slowly Increase Activity Rest between Activity Avoid heavy lifting Avoid Heavy Housework FOLLOW UP/APPOINTMENTS Appointments follow up with her own PMD through HMO insurance in 1-2 week after discharge HUGH JOSEPH MD Aug 09, 2016 11:41
[2016-08-09] MEDS ORDERED: PANT40TA4 PO (11:42)
[2016-08-09] MEDS ORDERED: ASPI325T32 PO (11:42)
--- NOTE | 2016-08-09 16:49 | PN ---
Date/Time of Note Date/Time of Note DATE: 08/09/16 TIME: 16:48 Assessment/Plan VTE Prophylaxis VTE Prophylaxis Intervention: heparin Lines/Catheters IV Catheter Type (from Nrs): Peripheral IV Urinary Cath still in place: No Assessment/Plan Assessment/Plan 1. Chest pain. serial troponis and EKG negative, low risk 2. Dizziness and hypotension. Blood pressure has improved. Continue IV fluids and monitor for now. 3. History of lupus. The patient states that she was evaluated by a hot die picker in the last year, but it was determined not to take any medicines for now, so will just monitor for now. The patient is not on any medicines presently for this, does not complain of any flare ups at this time. 4. Acute kidney injury due to prerenal azotemia on IVF 4. Gastrointestinal prophylaxis, proton pump inhibitor. 5. Deep venous thrombosis prophylaxis, heparin subQ. continue IVF, pain control Subjective 24 Hr Interval Summary Free Text/Dictation pt stable, no acute complaints but she feels dizzy with ambulation Exam/Review of Systems Vital Signs Vitals Vital Signs Date Time Temp Pulse Resp B/P Pulse Ox O2 Delivery O2 Flow Rate FiO2 08/09/16 07:20 97.7 18 135/75 99 08/08/16 19:56 67 08/08/16 01:30 Room Air 08/07/16 21:12 21 Intake and Output 08/08/16 08/08/16 08/09/16 15:00 23:00 07:00 Intake Total 1000 ml 3817 ml 2350 ml Output Total 3500 ml 2400 ml Balance 1000 ml 317 ml -50 ml Exam GENERAL: The patient is sitting up in bed, answering questions, alert, pleasant , in no acute distress. HEENT: Pupils equal, round and reactive to light. Extraocular muscles intact. NECK: Supple, no thyromegaly. LUNGS: Clear to auscultation bilaterally. CARDIOVASCULAR: S1, S2 heard. No rubs or gallops. ABDOMEN: Soft, nontender, nondistended. Normal bowel sounds. No rebound or guarding. MUSCULOSKELETAL: No lower extremity edema bilaterally. NEUROLOGIC: No focal deficits. Results Result Diagram: 08/09/16 0450 08/09/16 0450 Results 24 hrs Laboratory Tests Test 08/09/16 04:50 Anion Gap 14 Basophils # 0.0 Basophils % 1.1 Blood Urea Nitrogen 18 Calcium Level 9.0 Carbon Dioxide Level 27 Chloride Level 103 Creatinine 1.14 H Eosinophils # 0.1 Eosinophils % 3.7 Glucose Level 78 Hematocrit 41.5 Hemoglobin 13.4 Lymphocytes # 1.9 Lymphocytes % 49.2 Magnesium Level 1.9 Mean Corpuscular Hemoglobin 30.7 Mean Corpuscular Hemoglobin Concent 32.3 Mean Corpuscular Volume 95.0 Mean Platelet Volume 9.2 Monocytes # 0.5 Monocytes % 11.8 H Neutrophils # 1.3 L Neutrophils % 33.9 L Nucleated Red Blood Cells # 0.0 Nucleated Red Blood Cells % 0.0 Platelet Count 253 Potassium Level 4.3 Red Blood Count 4.37 Red Cell Distribution Width 12.8 Sodium Level 140 White Blood Count 3.8 L Medications Medications Current Medications Ondansetron HCl (Zofran Inj) 4 mg Q6H PRN IV NAUSEA AND/OR VOMITING; Start at 22:00 Acetaminophen (Tylenol Tab) 650 mg Q6H PRN PO PAIN LEVEL 1-3 OR FEVER; Start at 22:00 Acetaminophen/ Hydrocodone Bitart ([place] (5/325)) 1 tab Q6H PRN PO MODERATE PAIN LEVEL 4-6 Last administered on 08/09/16 12:52; Admin Dose 1 TAB; Start at 22:00 Morphine Sulfate (morphine) 2 mg Q4H PRN IV SEVERE PAIN LEVEL 7-10; Start 08/06 at 22:00 Docusate Sodium (Colace) 100 mg Q12H PRN PO CONSTIPATION; Start 08/06/16 at 22: 00 Magnesium Hydroxide (Milk Of Mag) 30 ml DAILY PRN PO CONSTIPATION; Start at 22:00 Sodium Biphosphate/ Sodium Phosphate (Fleet Enema) 133 ml DAILY PRN [place] CONSTIPATION; Start 08/06/16 at 22:00 Heparin Sodium (Porcine) 5000 unit 5,000 unit Q12 SC Last administered on 08:16; Admin Dose 5,000 UNIT; Start 08/07/16 at 09:00 Sodium Chloride (1/2 NS) 1,000 ml @ 75 mls/hr [id number] IV Last administered on 08/09/16 05:59; Admin Dose 75 MLS/HR; Start 08/06/16 at 21:39 Lorazepam (Ativan) 0.5 mg Q6H PRN IV ANXIETY; Start 08/06/16 at 22:00 Hydralazine HCl (Apresoline) 10 mg Q6H PRN IV ELEVATED BLOOD PRESSURE; Start at 22:00 Nitroglycerin (Nitroglycerin (Sl Tab) 0.4 Mg) 1 tab Q5M PRN SL ANGINA; Start at 22:00 Aspirin (Ecotrin) 325 mg DAILY PO Last administered on 08/09/16 08:05; Admin Dose 325 MG; Start 08/07/16 at 09:00 Pantoprazole (Protonix Tab) 40 mg DAILY@06 PO Last administered on 08/09/16 05 :59; Admin Dose 40 MG; Start 08/07/16 at 06:00 HUGH JOSEPH MD Aug 09, 2016 16:48
[2016-08-09 20:01] VITALS: BP 118/78; RESP 18
[2016-08-10] MEDS: HYDROCODONE/APAP (5/325) TAB PO PRN ×3 (03:23→23:26)
[2016-08-10] MEDS: PANTOPRAZOLE (EC) 40 MG TAB PO SCH (05:22)
[2016-08-10 07:29] VITALS: BP 114/69; RESP 16
[2016-08-10] MEDS: ASPIRIN (EC) 325 MG TAB PO SCH (08:14)
[2016-08-10] MEDS: HEPARIN 5,000 UNIT/0.5 ML SYG SC SCH ×2 (08:26→20:52)
[2016-08-10 09:51] LABS: POTASSIUM 4.1 mmol/L (3.5-5.1)
[2016-08-10 09:55] LABS: CALCIUM 8.7 mg/dl (8.4-10.2)
--- NOTE | 2016-08-10 10:54 | PN ---
Date/Time of Note Date/Time of Note DATE: 08/10/16 TIME: 10:42 Assessment/Plan VTE Prophylaxis VTE Prophylaxis Intervention: heparin Lines/Catheters IV Catheter Type (from Nrs): Saline Lock Urinary Cath still in place: No Assessment/Plan Assessment/Plan 1. Chest pain. serial troponis and EKG negative, low risk 2. Dizziness and hypotension. Blood pressure has improved. Continue IV fluids and monitor for now. 3. History of lupus. The patient states that she was evaluated by a technical business systems analyst in the last year, but it was determined not to take any medicines for now, so will just monitor for now. The patient is not on any medicines presently for this, does not complain of any flare ups at this time. 4. Acute kidney injury due to prerenal azotemia on IVF 4. Gastrointestinal prophylaxis, proton pump inhibitor. 5. Deep venous thrombosis prophylaxis, heparin subQ. continue IVF, pain control Subjective 24 Hr Interval Summary Free Text/Dictation pt still c/o dizziness, BP stable Exam/Review of Systems Vital Signs Vitals Vital Signs Date Time Temp Pulse Resp B/P Pulse Ox O2 Delivery O2 Flow Rate FiO2 08/10/16 07:29 98.8 72 16 114/69 100 08/08/16 01:30 Room Air 08/07/16 21:12 21 Intake and Output 08/09/16 08/09/16 08/10/16 15:00 23:00 07:00 Intake Total 3560 ml 2360 ml Output Total 150 ml 1300 ml 2600 ml Balance -150 ml 2260 ml -240 ml Exam GENERAL: The patient is sitting up in bed, answering questions, alert, pleasant , in no acute distress. HEENT: Pupils equal, round and reactive to light. Extraocular muscles intact. NECK: Supple, no thyromegaly. LUNGS: Clear to auscultation bilaterally. CARDIOVASCULAR: S1, S2 heard. No rubs or gallops. ABDOMEN: Soft, nontender, nondistended. Normal bowel sounds. No rebound or guarding. MUSCULOSKELETAL: No lower extremity edema bilaterally. NEUROLOGIC: No focal deficits. Results Result Diagram: 08/09/16 0450 08/10/16 0802 Results 24 hrs Laboratory Tests Test 08/10/16 08:02 Anion Gap 13 Blood Urea Nitrogen 15 Calcium Level 8.7 Carbon Dioxide Level 31 Chloride Level 101 Creatinine 1.00 Glucose Level 77 Potassium Level 4.1 Sodium Level 141 Medications Medications Current Medications Ondansetron HCl (Zofran Inj) 4 mg Q6H PRN IV NAUSEA AND/OR VOMITING; Start at 22:00 Acetaminophen (Tylenol Tab) 650 mg Q6H PRN PO PAIN LEVEL 1-3 OR FEVER; Start at 22:00 Acetaminophen/ Hydrocodone Bitart ([place] (5/325)) 1 tab Q6H PRN PO MODERATE PAIN LEVEL 4-6 Last administered on 08/10/16 08:15; Admin Dose 1 TAB; Start at 22:00 Morphine Sulfate (morphine) 2 mg Q4H PRN IV SEVERE PAIN LEVEL 7-10; Start 08/06 at 22:00 Docusate Sodium (Colace) 100 mg Q12H PRN PO CONSTIPATION; Start 08/06/16 at 22: 00 Magnesium Hydroxide (Milk Of Mag) 30 ml DAILY PRN PO CONSTIPATION; Start at 22:00 Sodium Biphosphate/ Sodium Phosphate (Fleet Enema) 133 ml DAILY PRN [place] CONSTIPATION; Start 08/06/16 at 22:00 Heparin Sodium (Porcine) 5000 unit 5,000 unit Q12 SC Last administered on 08:26; Admin Dose 5,000 UNIT; Start 08/07/16 at 09:00 Sodium Chloride (1/2 NS) 1,000 ml @ 75 mls/hr [id number] IV Last administered on 08/09/16 21:23; Admin Dose 75 MLS/HR; Start 08/06/16 at 21:39 Lorazepam (Ativan) 0.5 mg Q6H PRN IV ANXIETY; Start 08/06/16 at 22:00 Hydralazine HCl (Apresoline) 10 mg Q6H PRN IV ELEVATED BLOOD PRESSURE; Start at 22:00 Nitroglycerin (Nitroglycerin (Sl Tab) 0.4 Mg) 1 tab Q5M PRN SL ANGINA; Start at 22:00 Aspirin (Ecotrin) 325 mg DAILY PO Last administered on 08/10/16 08:14; Admin Dose 325 MG; Start 08/07/16 at 09:00 Pantoprazole (Protonix Tab) 40 mg DAILY@06 PO Last administered on 08/10/16 05 :22; Admin Dose 40 MG; Start 08/07/16 at 06:00 HUGH JOSEPH MD Aug 10, 2016 10:53
[2016-08-10] MEDS: SOD CHLORIDE 0.45% 1,000 ML IV SCH ×2 (11:21→23:27)
[2016-08-10] MEDS: MAGNESIUM HYDROXIDE 30ML CUP PO PRN (14:35)
[2016-08-10 20:38] VITALS: BP 126/69; RESP 20
[2016-08-11] MEDS: PANTOPRAZOLE (EC) 40 MG TAB PO SCH (05:44)
[2016-08-11 08:13] VITALS: BP 137/85; PULSE 67; RESP 16
[2016-08-11] MEDS: MAGNESIUM HYDROXIDE 30ML CUP PO PRN (08:13)
[2016-08-11] MEDS: ASPIRIN (EC) 325 MG TAB PO SCH (08:13)
[2016-08-11] MEDS: HEPARIN 5,000 UNIT/0.5 ML SYG SC SCH ×2 (08:25→20:46)
[2016-08-11] MEDS: SOD CHLORIDE 0.45% 1,000 ML IV SCH (13:02)
[2016-08-11 19:54] VITALS: BP 129/77; RESP 18
--- NOTE | 2016-08-11 20:44 | PN ---
Date/Time of Note Date/Time of Note DATE: 08/11/16 TIME: 20:43 Assessment/Plan VTE Prophylaxis VTE Prophylaxis Intervention: heparin Lines/Catheters IV Catheter Type (from Nrsg): Saline Lock Urinary Cath still in place: No Assessment/Plan Assessment/Plan 1. Chest pain. serial troponis and EKG negative, low risk 2. Dizziness and hypotension. Blood pressure has improved. Continue IV fluids and monitor for now. 3. History of lupus. The patient states that she was evaluated by a maintenance parts technician in the last year, but it was determined not to take any medicines for now, so will just monitor for now. The patient is not on any medicines presently for this, does not complain of any flare ups at this time. 4. Acute kidney injury due to prerenal azotemia on IVF 4. Gastrointestinal prophylaxis, proton pump inhibitor. 5. Deep venous thrombosis prophylaxis, heparin subQ. possible d/c plan on Friday Subjective 24 Hr Interval Summary Free Text/Dictation still c/o dizziness, no chest pain, BP stable, Cr 1.0 Exam/Review of Systems Vital Signs Vitals Vital Signs Date Time Temp Pulse Resp B/P Pulse Ox O2 Delivery O2 Flow Rate FiO2 08/11/16 19:54 97.8 80 18 129/77 97 08/11/16 08:13 Room Air 08/07/16 21:12 21 Intake and Output 08/10/16 08/10/16 08/11/16 15:00 23:00 07:00 Intake Total 400 ml 2045 ml 1675 ml Output Total 2220 ml Balance 400 ml -175 ml 1675 ml Results Result Diagram: 08/09/16 0450 08/10/16 0802 Medications Medications Current Medications Ondansetron HCl (Zofran Inj) 4 mg Q6H PRN IV NAUSEA AND/OR VOMITING; Start at 22:00 Acetaminophen (Tylenol Tab) 650 mg Q6H PRN PO PAIN LEVEL 1-3 OR FEVER; Start at 22:00 Acetaminophen/ Hydrocodone Bitart ([place] (5/325)) 1 tab Q6H PRN PO MODERATE PAIN LEVEL 4-6 Last administered on 08/10/16t 23:26; Admin Dose 1 TAB; Start at 22:00 Morphine Sulfate (morphine) 2 mg Q4H PRN IV SEVERE PAIN LEVEL 7-10; Start 08/06 at 22:00 Docusate Sodium (Colace) 100 mg Q12H PRN PO CONSTIPATION; Start 08/06/16 at 22: 00 Magnesium Hydroxide (Milk Of Mag) 30 ml DAILY PRN PO CONSTIPATION Last administered on 08/11/16 08:13; Admin Dose 30 ML; Start 08/06/16 at 22:00 Sodium Biphosphate/ Sodium Phosphate (Fleet Enema) 133 ml DAILY PRN [place] CONSTIPATION; Start 08/06/16 at 22:00 Heparin Sodium (Porcine) 5000 unit 5,000 unit Q12 SC Last administered on 08:25; Admin Dose 5,000 UNIT; Start 08/07/16 at 09:00 Sodium Chloride (1/2 NS) 1,000 ml @ 75 mls/hr [id number] IV Last administered on 08/11/16 13:02; Admin Dose 75 MLS/HR; Start 08/06/16 at 21:39 Lorazepam (Ativan) 0.5 mg Q6H PRN IV ANXIETY; Start 08/06/16 at 22:00 Hydralazine HCl (Apresoline) 10 mg Q6H PRN IV ELEVATED BLOOD PRESSURE; Start at 22:00 Nitroglycerin (Nitroglycerin (Sl Tab) 0.4 Mg) 1 tab Q5M PRN SL ANGINA; Start at 22:00 Aspirin (Ecotrin) 325 mg DAILY PO Last administered on 08/11/16 08:13; Admin Dose 325 MG; Start 08/07/16 at 09:00 Pantoprazole (Protonix Tab) 40 mg DAILY@06 PO Last administered on 08/11/16 05 :44; Admin Dose 40 MG; Start 08/07/16 at 06:00 HUGH JOSEPH MD Aug 11, 2016 20:44
[2016-08-12] MEDS: SOD CHLORIDE 0.45% 1,000 ML IV SCH ×2 (02:23→10:59)
[2016-08-12] MEDS: PANTOPRAZOLE (EC) 40 MG TAB PO SCH (06:18)
[2016-08-12 08:00] VITALS: BP 126/72; PULSE 69; RESP 20
[2016-08-12] MEDS: ASPIRIN (EC) 325 MG TAB PO SCH (09:01)
[2016-08-12] MEDS: HEPARIN 5,000 UNIT/0.5 ML SYG SC SCH (09:04)
--- NOTE | 2016-08-12 09:37 | PN ---
Date/Time of Note Date/Time of Note DATE: 08/12/16 TIME: 09:37 Assessment/Plan VTE Prophylaxis VTE Prophylaxis Intervention: heparin Lines/Catheters IV Catheter Type (from Nrsg): Saline Lock Urinary Cath still in place: No Assessment/Plan Assessment/Plan 1. Chest pain. serial troponis and EKG negative, low risk 2. Dizziness and hypotension. Blood pressure has improved. Continue IV fluids and monitor for now. 3. History of lupus. The patient states that she was evaluated by a it business process architect in the last year, but it was determined not to take any medicines for now, so will just monitor for now. The patient is not on any medicines presently for this, does not complain of any flare ups at this time. 4. Acute kidney injury due to prerenal azotemia on IVF 4. Gastrointestinal prophylaxis, proton pump inhibitor. 5. Deep venous thrombosis prophylaxis, heparin subQ. possible d/c plan today Subjective 24 Hr Interval Summary Free Text/Dictation pt stable, afebrile, Bp stable, plan for D/c home Exam/Review of Systems Vital Signs Vitals Vital Signs Date Time Temp Pulse Resp B/P Pulse Ox O2 Delivery O2 Flow Rate FiO2 08/12/16 08:00 98.8 69 20 126/72 98 Room Air Intake and Output 08/11/16 08/11/16 08/12/16 15:00 23:00 07:00 Intake Total 1000 ml 1675 ml 2950 ml Balance 1000 ml 1675 ml 2950 ml Results Result Diagram: 08/09/16 0450 08/10/16 0802 Medications Medications Current Medications Ondansetron HCl (Zofran Inj) 4 mg Q6H PRN IV NAUSEA AND/OR VOMITING; Start at 22:00 Acetaminophen (Tylenol Tab) 650 mg Q6H PRN PO PAIN LEVEL 1-3 OR FEVER Last administered on 08/12/16 09:18; Admin Dose 650 MG; Start 08/06/16 at 22:00 Acetaminophen/ Hydrocodone Bitart ([place] (5/325)) 1 tab Q6H PRN PO MODERATE PAIN LEVEL 4-6 Last administered on 08/10/16 23:26; Admin Dose 1 TAB; Start at 22:00 Morphine Sulfate (morphine) 2 mg Q4H PRN IV SEVERE PAIN LEVEL 7-10; Start 08/06 at 22:00 Docusate Sodium (Colace) 100 mg Q12H PRN PO CONSTIPATION; Start 08/06/16 at 22: 00 Magnesium Hydroxide (Milk Of Mag) 30 ml DAILY PRN PO CONSTIPATION Last administered on 08/11/16 08:13; Admin Dose 30 ML; Start 08/06/16 at 22:00 Sodium Biphosphate/ Sodium Phosphate (Fleet Enema) 133 ml DAILY PRN [place] CONSTIPATION; Start 08/06/16 at 22:00 Heparin Sodium (Porcine) 5000 unit 5,000 unit Q12 SC Last administered on 09:04; Admin Dose 5,000 UNIT; Start 08/07/16 at 09:00 Sodium Chloride (1/2 NS) 1,000 ml @ 75 mls/hr [id number] IV Last administered on 08/12/16 02:23; Admin Dose 75 MLS/HR; Start 08/06/16 at 21:39 Lorazepam (Ativan) 0.5 mg Q6H PRN IV ANXIETY; Start 08/06/16 at 22:00 Hydralazine HCl (Apresoline) 10 mg Q6H PRN IV ELEVATED BLOOD PRESSURE; Start at 22:00 Nitroglycerin (Nitroglycerin (Sl Tab) 0.4 Mg) 1 tab Q5M PRN SL ANGINA; Start at 22:00 Aspirin (Ecotrin) 325 mg DAILY PO Last administered on 08/12/16 09:01; Admin Dose 325 MG; Start 08/07/16 at 09:00 Pantoprazole (Protonix Tab) 40 mg DAILY@06 PO Last administered on 08/12/16 06 :18; Admin Dose 40 MG; Start 08/07/16 at 06:00 HUGH JOSEPH MD Aug 12, 2016 09:37
--- NOTE | 2016-08-12 15:30 | DS ---
DATE OF ADMISSION: 08/06/2016 DATE OF DISCHARGE: 08/12/2016 FINAL DISCHARGE DIAGNOSES: 1. Atypical chest pain. Workup negative. 2. Acute kidney injury secondary to prerenal azotemia. Status post IV fluid hydration. 3. Chronic dizziness and hypotension likely secondary to moderate to severe dehydration. 4. Moderate to severe dehydration. 5. History of lupus. CONSULTATIONS DONE DURING THIS HOSPITALIZATION: None. PROCEDURES PERFORMED DURING THIS HOSPITALIZATION: None. HOSPITAL COURSE: This is a 61-year-old female with a past medical history of lupus diagnosed by rhina matology last year. As per the patient, she presented with a complaint of chronic dizziness and regi st pain. She is noted to have hypotension in the emergency room. She is also noted to have acute k idney injury. The patient gets admitted to the telemetry floor initially where she had initial work up done including serial troponins, EKG and echocardiogram which was unremarkable. Her echocardiogr am shows a normal left ventricular systolic function. The patient was given aggressive IV fluid hyd ration due to the moderate to severe dehydration and acute kidney injury from severe prerenal azotem ia. The patient has slowly gradually improved back to the normal, but she continues to complain of dizziness for which she was kept in the hospital for a few more days and IV fluid was given. The supa harris got transferred from telemetry to the med/surg floor. She had a physical therapy evaluation a nd ambulation was done without any symptoms today and after having no dizziness with ambulation toda y, she is getting discharged to home today. DISPOSITION: To home. DISCHARGE CONDITION: Stable and improved compared to admission. DISCHARGE ACTIVITIES: As tolerated, slowly resume to the normal baseline activity. DISCHARGE DIET: Regular diet. DISCHARGE MEDICATIONS: 1. She is given prescription of Aspirin 325 mg p.o. daily. 2. Protonix 40 mg p.o. daily upon discharge. DISCHARGE FOLLOWUP AND INSTRUCTIONS: 1. The patient is to follow up with her own primary care doctor through her HMO insurance 1 to 2 we eks after discharge. 2. The patient is to follow with Dr. Jerry Joseph in outpatient nephrology clinic in 1 to 2 weeks after discharge. She has been explained about the discharge plan and followup instructions. She un derstood and verbalized understanding. Dictated By: JERRY JOSEPH MD, KP/MARIAM Conf#: [id number] [facility]#: [id number]
== END 2016-08-12 15:20 | disposition home or self-care (01) | DRG 313 ==
LOC: E/R 18:36 → TEL 21:35 → MS2 08-08 00:32
PROVIDERS: ADMIT Hospitalist; ATTEND Hospitalist
DX: R07.89 Other chest pain (principal); N17.9 Acute kidney failure, unspecified; I95.9 Hypotension, unspecified; E86.0 Dehydration; F17.210 Nicotine dependence, cigarettes, uncomplicated; E66.9 Obesity, unspecified; Z68.34 Body mass index [BMI] 34.0-34.9, adult; R51 Headache; Z87.898 Personal history of other specified conditions
CPT/HCPCS: 36415; 70450; 71010; 80048; 80061; 81001; 81003; 82550; 82553; 83036; 83735; 84100; 84439; 84443; 84484; 85025; 85610; 85730; 87086; 93005; 93306; J1644; J7030